=== PATIENT | male | born 1945 | race Caucasian/White ===

== ENCOUNTER 2022-12-24 08:59 | Day surgery (SDC) | payer BC, MEDICARE ==
[~2022-12-24 08:59] MED LIST: LACTATED RINGERS 1,000 ML IV SCH; LIDOCAINE 1% (10MG/ML) FOR IV START INTRADERMA PRN
[2022-12-24 10:57] VITALS: RESP 16; TEMP 98.2
[2022-12-24 11:05] LABS: Glucose,Whole Blood 143 mg/dL (70-110)
[2022-12-24] MEDS ORDERED: LACTATED RINGERS 1,000 ML IV ONE (11:05)
[2022-12-24] MEDS ORDERED: PROPOFOL 10 MG/ML 20 ML VIAL IV ONE (11:45)
--- NOTE | 2022-12-24 12:05 | P.PCN ---
Date of Procedure: 12/24/22 Procedure(s) Performed: BRIEF HISTORY: Patient is a 77-year-old pleasant white male scheduled for an elective colonoscopy as a part of evaluation of prior history of colon polyps. Last colonoscopy was 3 years ago. PROCEDURE PERFORMED: Colonoscopy with snare polypectomy. PREOPERATIVE DIAGNOSIS: History of colon polyps. IV sedation per Anesthesia. PROCEDURE: After informed consent was obtained, the patient, was brought into the endoscopy unit. IV sedation was administered by Anesthesia under continuous monitoring. Digital rectal examination was normal. Initially the Olympus CF-160 flexible video colonoscope was then inserted in the rectum, gradually advanced into the cecum without any difficulty. Careful examination was performed as the scope was gradually being withdrawn. Ileocecal valve and the appendiceal orifice were visualized and appeared normal. Prep was excellent. Mucosa of the cecum, appeared normal. In the ascending colon there was a 1 cm polyp removed by snare polypectomy. In the descending colon there was a another 1 cm polyp removed by snare polypectomy. In the sigmoid colon there was a 5 mm polyp removed by snare polypectomy. Rest of the descending colon, sigmoid colon, and rectum appeared normal. Retroflexion was performed in the rectum and no lesions were seen. The patient tolerated the procedure well. IMPRESSION: 1 cm ascending colon polyp status post polypectomy 1 cm descending colon polyp status post polypectomy 5 mm rectal polyp status post polypectomy RECOMMENDATIONS: Findings of this examination were discussed with the patient as well as his family. He was advised to follow with the biopsy results. If the biopsy is adenoma he can have a repeat colonoscopy in 3 years.
[2022-12-24 12:29] VITALS: BP 104/61; PULSE 74
== END 2022-12-24 12:49 | disposition home or self-care (01) ==
LOC: ORWHC2ENDO 08:59
PROVIDERS: ATTEND Internal Medicine Gastroenterology
DX: Z12.11 Encounter for screening for malignant neoplasm of colon (principal); D12.5 Benign neoplasm of sigmoid colon; D12.4 Benign neoplasm of descending colon; D12.8 Benign neoplasm of rectum; I10 Essential (primary) hypertension; E78.5 Hyperlipidemia, unspecified; I25.2 Old myocardial infarction; E11.9 Type 2 diabetes mellitus without complications; Z88.0 Allergy status to penicillin; Z79.82 Long term (current) use of aspirin; Z79.84 Long term (current) use of oral hypoglycemic drugs; Z79.01 Long term (current) use of anticoagulants; Z86.010 Personal history of colon polyps
CPT/HCPCS: 45385; J2704; 88305

== ENCOUNTER → 2024-10-09 | Outpatient (CLI) | payer MEDICARE ==
--- NOTE | 2024-10-09 07:05 | MR ---
EXAMINATION TYPE: MR knee LT wo con DATE OF EXAM: 10/09/2024 COMPARISON: Outside left knee x-ray August 29, 2024 HISTORY: Left knee pain, injury 3 mos ago. TECHNIQUE: Multiplanar, multisequence images of the knee is performed without IV contrast. FINDINGS: MEDIAL MENISCUS: Anterior and posterior horns are intact without tear. LATERAL MENISCUS: Anterior and posterior horns are intact without tear. CRUCIATE LIGAMENTS: The anterior and posterior cruciate ligaments are intact and unremarkable. COLLATERAL LIGAMENTS: The medial collateral ligament and lateral collateral ligament complex are inta ct and unremarkable. EXTENSOR MECHANISM: Visualized quadriceps and patellar tendons are intact. EFFUSION: Large size suprapatellar joint effusion. POPLITEAL CYST: No popliteal/pena cyst. TRICOMPARTMENT SPACES: [id number] tricompartment joint space loss and mild spurring. CARTILAGE: Significant Cartilaginous loss medial tibial femoral compartment. BONE MARROW SIGNAL: Marked heterogeneous increased T2 signal involving the distal medial femoral cond yle. Articular surface shows osteochondral defect measuring 11 mm transversely coronal image 20. OTHER: No additional significant abnormality is appreciated. IMPRESSION: 1. Osteochondral injury distal medial femoral condyle with marked abnormal bone marrow edema extendin g to the distal femoral metaphysis. 2. Large-sized suprapatellar joint effusion. [facility], , 10/09/2024 7:02 AM
== END | disposition home or self-care (01) ==
LOC: RADMRIMAIN 05:36
PROVIDERS: ATTEND Orthopaedic Surgery
DX: M25.462 Effusion, left knee (principal); R60.9 Edema, unspecified

== ENCOUNTER → 2024-11-01 | Outpatient (CLI) | payer MEDICARE ==
[2024-11-01 19:10] LABS: Basophils # (A) 0.05 X 10*3/uL (0.00-0.10); Basophils % (A) 0.7 %; Eosinophils # (A) 0.39 X 10*3/uL (0.04-0.35); Eosinophils % (A) 5.5 %; HCT 38.8 % (39.6-50.0); HGB 12.4 g/dL (13.0-17.0); Lymphocytes # (A) 1.64 X 10*3/uL (0.90-5.00); MCH 28.8 pg (27.0-32.0); Mean Platelet Volume 12.3 FL (9.5-12.2); Monocytes # (A) 0.69 X 10*3/uL (0.20-1.00); Monocytes % (A) 9.7 %; NRBC Per 100 WBC 0 X 10*3/uL (0.00-0.01); Neutrophils # (A) 4.35 X 10*3/uL (1.80-7.70); Neutrophils % (A) 60.8 %; Platelet Count 195 X 10*3/uL (140-440); RBC 4.31 X 10*6/uL (4.40-5.60); RDW 13.3 % (11.5-14.5); WBC 7.14 X 10*3/uL (4.50-10.00)
[2024-11-01 20:32] LABS: BUN/Creat Ratio 14.25 Ratio (12.00-20.00); Blood Urea Nitrogen 17.1 mg/dL (9.0-27.0); Carbon Dioxide 25.6 mmol/L (21.6-31.8); Chloride 103 mmol/L (96-109); Glucose 116 mg/dL (70-110); Potassium 4.3 mmol/L (3.5-5.5); Sodium 140 mmol/L (135-145)
[2024-11-01 20:33] LABS: Calcium 9.9 mg/dL (8.7-10.3)
== END | disposition home or self-care (01) ==
LOC: LABWHC1 13:04
PROVIDERS: ATTEND Orthopaedic Surgery
DX: Z01.818 Encounter for other preprocedural examination (principal); M93.262 Osteochondritis dissecans, left knee
CPT/HCPCS: 36415; 80048; 85025

== ENCOUNTER 2024-11-13 07:25 | Day surgery (SDC) | payer MEDICARE ==
--- NOTE | 2024-11-12 08:09 | P.HPOR ---
History of Present Illness H&P Date: 11/12/24 Chief Complaint: Left knee pain The patient is a 79-year-old male who presents with progressive left knee pain after an injury in June 2024. He fell down a ladder twisting his knee. He's had pain ever since. He notes medial and posterior pain along with buckling. He tried medications in addition to an injection with minimal relief. He notes daily pain that limits him. Review of Systems Per HPI Past Medical History Past Medical History: Cancer, Diabetes Mellitus, Hyperlipidemia, Hypertension, Myocardial Infarction ([place]), Vascular Disorder Additional Past Medical History / Comment(s): skin cancer removed from his back Last Myocardial Infarction Date:: 2008 History of Any Multi-Drug Resistant Organisms: None Reported Past Surgical History: Heart Catheterization With Stent Additional Past Surgical History / Comment(s): angioplasty to vessel in lft leg, bladder stones lasered,turp, Past Anesthesia/Blood Transfusion Reactions: No Reported Reaction Date of Last Stent Placement:: 2008 Smoking Status: Never smoker Medications and Allergies Home Medications Medication Instructions Recorded Confirmed Type Aspirin [Adult Low Dose Aspirin EC] 81 mg PO DAILY 12/22/22 12/24/22 History Clopidogrel [Plavix] 1 tab PO DAILY 12/22/22 12/24/22 History Losartan Potassium 100 mg PO DAILY 12/22/22 12/24/22 History Metoprolol Succinate [Toprol XL] 50 mg PO DAILY 12/22/22 12/24/22 History Multivitamins, Thera [Multivitamin 1 tab PO DAILY 12/22/22 12/24/22 History (formulary)] Pravastatin Sodium 80 mg PO DAILY 12/22/22 12/24/22 History amLODIPine BESYLATE 2.5 mg PO DAILY 12/22/22 12/24/22 History glipiZIDE [glipiZIDE ER] 1 tab PO DAILY 12/22/22 12/24/22 History metFORMIN HCL [Glucophage] 1,000 mg PO BID 12/22/22 12/24/22 History Allergies Allergy/AdvReac Type Severity Reaction Status Date / Time Penicillins Allergy Unknown Verified 12/24/22 10:54 Physical Examination - Knee left Appearance: effusion Effusion grade: grade 3 Tenderness with palpation: anterior, medial Pain: throughout ROM Gait: limping ROM: extension: -10 degrees ROM: flexion: 120 degrees Crepitus with motion: Yes Strength: extension: 5/5 Strength: flexion: 5/5 Meniscal tests: medial meniscal tests: positive, medial joint line pain: positive Results Patient is a well-developed well-nourished male approximately 5 foot 5, 188 pounds of mesomorphic habitus. HEENT exam is nonfocal, neck is supple. He has painless passive motion of his left hip. Straight leg raise is negative. He is tender about the medial joint line of the left knee. Collaterals stable, Deon was negative, Venice's causes medial pain. He does have an antalgic gait pattern. His distal neurovascular appears intact in left lower extremity. - Diagnostic results Knee MRI: image reviewed (MRI of the left knee is reviewed and shows evidence of an osteochondral lesion involving medial femoral condyle.) Assessment and Plan Assessment: Left knee internal derangement/medial femoral condyle osteochondral injury Plan: I talked to the patient at length regarding his condition along with treatment options. At this point he continues to have pain and mechanical symptoms after this acute injury despite attempted conservative measures. After a thorough discussion he opts to proceed with surgery. We'll plan to proceed with left knee arthroscopy with possible osteochondral fragment resection along with microfracture medial femoral condyle. Risks and benefits are discussed at length limbs turns. We will likely perform that as an outpatient procedure. We will have him resume his Plavix postoperatively.
[2024-11-13] MEDS ORDERED: fentaNYL (PF) 50 MCG/ML 2 ML AMP IVP PRN (07:46)
[2024-11-13] MEDS ORDERED: LIDOCAINE 1% (10MG/ML) FOR IV START INTRADERMA PRN (07:46)
[2024-11-13] MEDS ORDERED: MIDAZOLAM 2 MG/2 ML VIAL IV PRN (07:46)
[2024-11-13 08:26] LABS: Glucose,Whole Blood 136 mg/dL (70-110)
[2024-11-13] MEDS: IV FLUID CONTINUATION 1,000 ML IV ONE (08:27)
[2024-11-13] MEDS: LACTATED RINGERS 1,000 ML IV SCH (08:31)
[2024-11-13] MEDS: ONDANSETRON 4 MG/2 ML VIAL IVP ONE (08:32)
[2024-11-13] MEDS: DEXAMETHASONE SOD PHOSPHATE 4 MG/ML 1 ML VIAL IV ONE (08:32)
[2024-11-13] MEDS: FAMOTIDINE 20 MG/2 ML VIAL IV STA (08:34)
[2024-11-13] MEDS ORDERED: LIDOCAINE 1% INJ 10MG/ML (20 ML MDV) ONE (09:21)
[2024-11-13] MEDS ORDERED: PROPOFOL 10 MG/ML 20 ML VIAL IV ONE (09:21)
[2024-11-13] MEDS ORDERED: fentaNYL (PF) 50 MCG/ML 2 ML AMP ONE (09:21)
[2024-11-13] MEDS: EPINEPHrine (PF) 1 ML in SODIUM CHLORIDE 0.9% IRRIGATIO 3,000 ML IRRIGATION ONE (09:26)
--- NOTE | 2024-11-13 10:11 | P.OP ---
Date of Procedure: 11/13/24 Preoperative Diagnosis: Left knee internal derangement Postoperative Diagnosis: Grade 4 chondral injury medial aspect distal medial femoral condyle, posterior medial meniscal tear Procedure(s) Performed: Left knee arthroscopic medial femoral chondral ectomy/partial medial meniscectomy/microfracture medial femoral condyle Anesthesia: HELENAA Surgeon: Kahng Christian Estimated Blood Loss (ml): 10 Pathology: none sent Condition: stable Disposition: PACU Indications for Procedure: The patient is a 79-year-old gentleman who presents with progressive left knee pain and mechanical symptoms despite conservative measures. A discussion of the risks and benefits of operative intervention versus continued conservative measures was made with the patient. He opted to proceed with surgery. Operative risks include infection, neurovascular injury, development of blood clots, possible incomplete resolution of symptoms, possible worsening of symptoms and need for subsequent procedures was discussed. Informed consent was obtained. Operative Findings: As below Description of Procedure: The patient was brought to the operating room, and after induction of general anesthesia examined the left knee. Collaterals were stable, Deon was negative, and posterior drawer was negative. The left lower extremity was prepped and draped in a normal fashion. A superior lateral portal was made through a 3 mm skin incision superior and lateral to the patella. This was used for outflow. A large effusion was encountered. A lateral portal was made through a 5 mm vertical skin incision lateral to the patella tendon above the joint line. Diagnostic arthroscopy was performed. On inspection of the medial compartment, a grade 3/4 chondral injury was noted involving the distal medial aspect of the medial femoral condyle measuring approximately 10 x 15 mm. There was a large loose chondral flap that was debrided back to a stable base with a motorized shaver. The remaining cartilage was stable and intact. Microfracture was performed utilizing a power pick breaching the subchondral surface down to the bone marrow elements. An oblique tear involving the posterior horn of the medial meniscus in the white -red junction was noted. This was debrided back to stable base with straight baskets and a motorized shaver. The remaining medial meniscus was stable and intact. On inspection of the notch, the anterior cruciate ligament appeared to be intact. On inspection of the lateral compartment, there was mild chondromalacia involving the central portion of the posterior lateral femoral condyle. The lateral meniscus was stable and intact. On inspection of the patellofemoral articulation, there was some chondral fibrillation however no loose chondral fragments. The gutters were clear debris. The knee was then thoroughly irrigated. The portals were closed with Steri-Strips. A sterile dressing was applied in addition to a compression stocking. The patient was awoken from general anesthesia and transferred to recovery room in good condition. Blood loss was estimated at 10 mL. No complications were incurred.
[2024-11-13 10:16] VITALS: TEMP 97.2
[2024-11-13] MEDS: HYDROmorphone 0.5 MG/0.5 ML SYRINGE IVP PRN (10:21)
[2024-11-13] MEDS: LACTATED RINGERS 1,000 ML IV ONE (11:31)
[2024-11-13 13:08] VITALS: BP 140/69; PULSE 63; RESP 18
== END 2024-11-13 13:28 | disposition home or self-care (01) ==
LOC: OR 07:25
PROVIDERS: ATTEND Orthopaedic Surgery
DX: S83.242A Other tear of medial meniscus, current injury, left knee, initial encounter (principal); M22.42 Chondromalacia patellae, left knee; E11.9 Type 2 diabetes mellitus without complications; E78.5 Hyperlipidemia, unspecified; I10 Essential (primary) hypertension; I25.2 Old myocardial infarction; I73.9 Peripheral vascular disease, unspecified; Z79.02 Long term (current) use of antithrombotics/antiplatelets; Z79.84 Long term (current) use of oral hypoglycemic drugs; Z85.828 Personal history of other malignant neoplasm of skin; Z95.5 Presence of coronary angioplasty implant and graft; Z79.01 Long term (current) use of anticoagulants; Z79.899 Other long term (current) drug therapy; Z88.0 Allergy status to penicillin; Z98.890 Other specified postprocedural states; X58.XXXA Exposure to other specified factors, initial encounter
CPT/HCPCS: 29881; 29879; J1100; J0690; J2405; J0171; J2003; J3010; J3490; J2704; J1171